=== PATIENT | female | born 1970 | race Caucasian/White ===

== ENCOUNTER 2016-07-27 20:25 | Emergency (ER) | payer BC ==
[~2016-07-27] VITALS: Ht 157.5 cm; Wt 62.1 kg
[~2016-07-27 20:25] MED LIST: PERCOCET 5/31 TABLET PO; PREDNISONE10 MG PO; TORADOL10 MG PO; VALIUM5 MG PO
[2016-07-27] MEDS ORDERED: MOTRIN600 MG PO (22:14)
[2016-07-27 22:30] VITALS: BP 117/70
== END 2016-07-27 22:38 | disposition home or self-care (01) ==
LOC: EXP 20:25 → EME 20:25 → EXP 22:38
DX: M79.662 Pain in left lower leg (principal); F17.200 Nicotine dependence, unspecified, uncomplicated
CPT/HCPCS: 93971; 99281; 99284